=== PATIENT | male | born 1960 ===

== ENCOUNTER 2019-11-01 05:10 | Day surgery (SDC) | payer OTHER ==
[~2019-11-01 05:10] MED LIST: CLONAZEPAM1 M1 PO; COZAAR25 MG PO; LIPITOR20 MG PO; TEMAZEPAM15 MG PO; WELLBUTRIN XL300 MG PO; ZIAC 10/6.25 MG1 TAB PO
== END 2019-11-01 12:15 | disposition home or self-care (01) ==
LOC: CIR.AMB 05:10
DX: H61.321 Acquired stenosis of right external ear canal secondary to inflammation and infection (principal); H90.11 Conductive hearing loss, unilateral, right ear, with unrestricted hearing on the contralateral side; H66.91 Otitis media, unspecified, right ear